=== PATIENT | female | born 1945 | race Caucasian/White ===

== ENCOUNTER 2021-01-20 15:03 | Outpatient (CLI) | payer MEDICARE, SELFPAY ==
--- NOTE | 2021-01-20 15:10 | MM_ITS ---
WS: [id number] BILATERAL DIGITAL SCREENING MAMMOGRAPHY WITH CAD CLINICAL INFORMATION: SCREENING HISTORY: Screening mammogram. No current complaints. COMPARISON: Multiple outside examinations including 8 , , . . Ultrasou nd TECHNIQUE: Bilateral CC and MLO views. FINDINGS: Bilateral breast implants with dense capsular calcifications. Scattered fibroglandular densities bilaterally. 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 This is increased in size since 2017. T joy this measures approximately 3.9 x 1.6 CM compared to 2.3 x 1.1 cm in 2019 and 1.2 x 7.8 cm on . This measured only 4 mm . Otherwise no suspicious focal mass, asymmetry, calcifications, or architectural distortion. No eviden ce of malignancy. MM/[place] [id number] IMPRESSION: BI-RADS: 2-Benign FOLLOW UP: See Report Significant increase in size of the silicone granuloma anterior lateral left br east. This is significantly increased since 2017 and recommend breast surgery c onsultation for further evaluation regarding breast implant revision or removal . Otherwise recommend Annual screening mammography.
== END 2021-01-20 15:04 | disposition home or self-care (01) ==
LOC: RADSHAW 15:09
PROVIDERS: Family Provider Family Medicine; Visit Provider Family Medicine
DX: Z12.31 Encounter for screening mammogram for malignant neoplasm of breast (principal)
CPT/HCPCS: 77067

== ENCOUNTER 2022-02-05 12:35 | Outpatient (CLI) | payer MEDICARE, SELFPAY ==
--- NOTE | 2022-02-05 12:42 | XR_ITS ---
WS: [id number] DEXA (DUAL ENERGY X-RAY ABSORPTIOMETRY) Bone mineral density was performed using a echoecho machine. HISTORY: POST MENOPAUSAL COMPARISON: 08/08/2017 Lumbar spine BMD (L1-L4): 1.339 g/cm2 T score: 1.3 Z score: 2.1 Total hip BMD: Left: 0.912 g/cm2. T score: -0.8 Z score: 0.3 Right: 0.911 g/cm2. T score: -0.8 Z score: 0.3 10 year probability of a major osteoporotic fracture is 28%. Compared to the prior study from 08/08/2017. Lumbar spine bone mineral density has increased by 2.1%. Bilateral hips bone mineral density has decreased by 5.8%. XR/XR DEXA axial skeleton* [id number] IMPRESSION: NORMAL BONE MINERAL DENSITY based upon the WHO classification for females. Significant decrease in bone mineral density within the hips and increased with in the lumbar spine since the prior study.
== END 2022-02-05 12:36 | disposition home or self-care (01) ==
PROVIDERS: PCP Family Medicine; Visit Provider Nurse Practitioner
DX: Z78.0 Asymptomatic menopausal state (principal)
CPT/HCPCS: 77080

== ENCOUNTER 2023-11-13 09:10 | Emergency (ER) | payer MEDICARE, SELFPAY ==
[2023-11-13 09:46] VITALS: BP 155/76; PULSE 75; RESP 18; TEMP 37.2; O2SAT 95; BMI 38.4
--- NOTE | 2023-11-13 11:35 | XR_ITS ---
WS: [id number] Left knee, 3 views, 11/13/2023 Clinical Data: knee pain, felt pop Comparison: Left knee, 03/04/2015 Findings: There is narrowing of the medial and lateral joint compartments with spurring of the medial and later al tibial plateau and femoral condyles. The posterior patella shows significant spurring. There are no fractures or dislocations. The soft ti ssues are normal. Impression: Severe osteoarthritis of the left knee Kellgren-Rohit Classification: grade 4 (severe): large osteophytes, marked narrowing of joint spac e, severe sclerosis and definite deformity of bone ends
--- NOTE | 2023-11-13 13:21 | W.ED.EXTPRO ---
HPI - Extremity Problem General: Chief complaint: Extremity Injury, Lower Stated complaint: left knee pain Time Seen by Provider: 11/13/23 13:20 History of Present Illness: 77-year-old female comes in today with crepitus to the left knee. Patient has difficulty with mobility due to severe arthritis to the left knee. Patient at this time uses Tylenol routinely for her pain. Patient denies any recent falls but states that when she had got up a couple of times she feels a pop in her knee. Minimal to no swelling is noted to the knee. Patient does have a appointment to see orthopedist on the . Patient just stresses that she is having more more difficulty with getting around. Review of Systems General: Reports: 10 or more systems reviewed and unremarkable except in HPI and below Musc: Reports: joint pain Physical Exam Const: COMMON NORMALS: alert HENMT: COMMON NORMALS: normocephalic HEAD & SCALP: normocephalic Neck/C-Spine: COMMON NORMALS: full ROM Resp: COMMON NORMALS: normal respiratory effort Cardio: COMMON NORMALS: regular rate RATE: regular rate Back/Pelvis: COMMON NORMALS: thoracic and lumbar spine normal to inspection Extremity: LEFT LOWER EXTREMITY: Yes knee joint (No redness, pain and crepitus with range of motion.) Neuro: SENSORIUM/ORIENTATION: Yes alert Skin: COMMON NORMALS: turgor normal GENERAL SKIN EXAM: turgor normal Course Vital Signs: Vital signs: Vital Signs Temperature 99 F 11/13/23 09:46 Pulse Rate 75 11/13/23 09:46 Respiratory Rate 18 11/13/23 09:46 Blood Pressure 155/76 11/13/23 09:46 Pulse Oximetry 95 11/13/23 09:46 Oxygen Delivery Me thod Room Air 11/13/23 09:46 MDM - Extremity (Nontraumatic) Medical Decision Making 77-year-old female comes in today with complaints of pain to the left knee. Patient reports no acute injury. Patient does have a history of osteoarthritis to the knee that has worsened over the years. Patient is scheduled to follow-up with a orthopedist on 22 November. Patient denies any recent falls. Patient reports feeling a popping sensation in the knee at times. Differential diagnosis includes but not limited to osteoarthritis of the knee, meniscal injury, ligament injury, fracture. X-ray notes a severely arthritic knee without any signs of acute injury. Reviewed exam with patient with recommendations for follow-up with orthopedic surgeon. Patient does have an appointment for the 12th but does not feel like she can wait that long. I offered him referral to case management to discuss may be moving up the orthopedic appointment if possible. Patient was agreeable. Patient was started on naproxen and was recommended to continue with Tylenol for pain. Patient reported understanding. All radiology interpretation(s) finalized by discharge Discharge Plan Discharge Patient Disposition: Home Clinical Impression: Tricompartment osteoarthritis of knee Qualifiers: Laterality: left Qualified Code(s): M17.12 - Unilateral primary osteoarthritis, left knee Condition: Stable Prescriptions: New naproxen 500 mg tablet,delayed release (DR/EC) 500 mg PO BID Qty: 20 0RF Discharge Orders: Discharge ED (Routine); Ordered 11/13/23 Ordered By: Ronen Banegas Referrals: Hubert Manjarrez MD [Primary Care Provider] - Discharge Diet: Usual diet Discharge Activity: Use walker/crutches as instructed Patient Instructions: Osteoarthritis (ED), Pain Management Activity Restrictions/Additional Instructions: Use ice and heat to help with pain. Continue with Tylenol to help control pain. Use naproxen 500 twice a day routinely for pain and inflammation. Try to maintain activity is much as possible. Follow-up with orthopedic surgeon for further evaluation and treatment. Return to ED for new concerns. Coding Level of Care Code ED Assisted Living Home Director for Bill Forte
--- NOTE | 2023-11-14 10:00 | DCPLANNER ---
Message sent to Ortho for a follow up would like sooner appointment. osteoarthritis knee.
== END 2023-11-13 13:59 | disposition home or self-care (01) ==
PROVIDERS: Emergency Provider Nurse Practitioner Family; PCP Family Medicine
DX: M17.12 Unilateral primary osteoarthritis, left knee (principal)
CPT/HCPCS: 73562; 99283

== ENCOUNTER → 2023-11-21 10:04 | Outpatient (BNVA) | payer MEDICARE, SELFPAY | PROVIDERS: PCP Family Medicine; Visit Provider Nurse Practitioner | DX: M17.12 Unilateral primary osteoarthritis, left knee; Z01.818 Encounter for other preprocedural examination; M25.562 Pain in left knee | CPT/HCPCS: 36415; 73560; 73565; 80053; 81003; 85025; 99204 ==

== ENCOUNTER 2023-12-03 09:25 | Outpatient (RCR) | payer MEDICARE, SELFPAY | END 2023-12-11 23:59 | disposition home or self-care (01) | LOC: SPT 09:25 | PROVIDERS: PCP Family Medicine; Visit Provider Nurse Practitioner | DX: M17.0 Bilateral primary osteoarthritis of knee (principal) | CPT/HCPCS: 97110; 97161 ==

== ENCOUNTER 2023-12-16 12:34 | Outpatient (RCR) | payer MEDICARE, SELFPAY | END 2024-01-09 23:59 | disposition home or self-care (01) | LOC: SPT 12:34 | PROVIDERS: PCP Family Medicine; Visit Provider Nurse Practitioner | DX: M17.0 Bilateral primary osteoarthritis of knee (principal) | CPT/HCPCS: 97110 ==

== ENCOUNTER 2023-12-17 08:37 | Outpatient (CLI) | payer MEDICARE, SELFPAY ==
--- NOTE | 2023-12-17 09:00 | CT_ITS ---
WS: [id number] CT LEFT knee, noncontrast HISTORY: pre-operative evaluation for TKA. TECHNIQUE: Protocol for [facility] total knee replacement has been obtained. This includes axial imaging th rough the LEFT hip, LEFT knee and LEFT ankle. DLP: 948.22 mGy COMPARISON: None available. Pelvis: Bilateral degenerative joint disease at the hips, RIGHT greater than LEFT. No destructive bon e lesions. No fracture. LEFT knee: Moderate tricompartment arthritis. Marginal osteophytes. No fracture. Small suprapatellar joint effusion. LEFT ankle: No fracture. IMPRESSION: CT imaging provided for [facility] robotic total knee replacement.
== END 2023-12-17 08:38 | disposition home or self-care (01) ==
PROVIDERS: PCP Family Medicine; Visit Provider Nurse Practitioner
DX: M25.762 Osteophyte, left knee (principal); M13.862 Other specified arthritis, left knee; M25.462 Effusion, left knee; I48.91 Unspecified atrial fibrillation; M17.0 Bilateral primary osteoarthritis of knee
CPT/HCPCS: 73700

== ENCOUNTER → 2023-12-23 13:03 | Outpatient (BNVA) | payer MEDICARE, SELFPAY | PROVIDERS: PCP Family Medicine; Visit Provider Family Medicine | DX: Z01.818 Encounter for other preprocedural examination (principal) | CPT/HCPCS: 81000 ==

== ENCOUNTER 2023-12-30 10:36 | Outpatient (CLI) | payer MEDICARE, SELFPAY ==
--- NOTE | 2023-12-30 10:45 | USCV_ITS ---
Loreta Martinez Age: 78 Gender: F : 1945 Exam Date: 12/30/2023 11:03 Ordering Phys: Hubert Manjarrez MD Technologist: Melanie Cheung Exam Location: [facility] [place] Indication: a fib unspecified, pre op knee arthroscopy BP: 124 / 78 HR: 0 Rhythm: Sinus Technical Quality: Adequate MEASUREMENTS (Male / Female) Normal Values 2D ECHO LV Diastolic Diameter PLAX 5.0 cm 4.2 - 5.9 / 3.9 - 5.3 cm IVS Diastolic Thickness 0.7 cm 0.6 - 1.0 / 0.6 - 0.9 cm IVS Systolic Thickness 1.2 cm LVPW Diastolic Thickness 0.5 cm 0.6 - 1.0 / 0.6 - 0.9 cm LVPW Systolic Thickness 1.8 cm LVOT Diameter 2.0 cm LV Ejection Fraction 2D Teich 87.1 % LV Ejection Fraction MOD 2C 57.6 % Aorta at Sinotubular Diameter 2.4 cm IVC Diameter 1.3 cm M-MODE LA Ao Ratio MM 0.8 AV Cusp Separation MM 1.9 cm DOPPLER AV Peak Velocity 149.0 cm/s LVOT Peak Velocity 109.0 cm/s AV Area Cont Eq vti 2.7 cm squared AV Area Cont Eq pk 2.4 cm squared MV Area PHT 2.4 cm squared Mitral E to A Ratio 0.9 TV Peak Velocity 168.3 cm/s TR Peak Velocity 264.0 cm/s TR Peak Gradient 27.9 mmHg Right Atrial Pressure 3.0 mmHg Pulmonary Artery Systolic Pressu 30.9 mmHg PV Peak Velocity 56.3 cm/s FINDINGS Left Ventricle Left ventricle is normal in size. LV systolic function is normal with EF of 50-55%. No regional wall motion abnormalities are seen. Grade 1 diastolic dysfunction. Right Ventricle Normal in size and function Right Atrium Normal in size. Echogenic structure seen in right atrium. Likely thrombus. Other differentials will include myxoma vs artifact. Left Atrium Normal in size Mitral Valve Structurally normal mitral valve. Trace mitral regurgitation. Aortic Valve Structurally normal aortic valve. No significant stenosis. Tricuspid Valve Mild tricuspid regurgitation. Pulmonary artery systolic pressure is normal. Pulmonic Valve Not well visualized Pericardium Normal Aorta Normal in size IVC Appears to be normal CONCLUSIONS LV systolic function is normal with EF of 50-55%. Grade 1 diastolic dysfunction Echogenic structure seen in right atrium. Likely thrombus. Other differentials would include myxoma versus artifact. Will recommend cardiac CT to better assess the structure. Trace mitral regurgitation Mild tricuspid regurgitation No comparison studies are available. Misha Mcfadden MD (Electronically Signed) Final Date: 04 January 2024 12:25 S
== END 2023-12-30 10:37 | disposition home or self-care (01) ==
LOC: RAD 10:36
PROVIDERS: PCP Family Medicine; Visit Provider Family Medicine
DX: Z01.810 Encounter for preprocedural cardiovascular examination (principal); I48.91 Unspecified atrial fibrillation; R93.1 Abnormal findings on diagnostic imaging of heart and coronary circulation; I07.1 Rheumatic tricuspid insufficiency
CPT/HCPCS: 93306

== ENCOUNTER → 2024-01-30 09:59 | Outpatient (BNVA) | payer MEDICARE, SELFPAY | PROVIDERS: PCP Family Medicine; Referring Provider Family Medicine; Visit Provider Internal Medicine | DX: R93.1 Abnormal findings on diagnostic imaging of heart and coronary circulation (principal); I49.1 Atrial premature depolarization; I49.3 Ventricular premature depolarization; I47.20 Ventricular tachycardia, unspecified; I47.10 Supraventricular tachycardia, unspecified | CPT/HCPCS: 93242 ==

== ENCOUNTER → 2024-03-24 14:23 | Outpatient (BNVA) | payer MEDICARE, SELFPAY | PROVIDERS: PCP Family Medicine; Referring Provider Family Medicine; Visit Provider Internal Medicine | DX: R07.9 Chest pain, unspecified (principal); I48.91 Unspecified atrial fibrillation; I51.89 Other ill-defined heart diseases; R94.31 Abnormal electrocardiogram [ECG] [EKG]; I44.4 Left anterior fascicular block | CPT/HCPCS: 93005; 99204 ==

== ENCOUNTER → 2024-07-28 12:25 | Outpatient (BNVA) | payer MEDICARE, SELFPAY | PROVIDERS: PCP Family Medicine; Visit Provider Internal Medicine | DX: I48.91 Unspecified atrial fibrillation (principal); I51.89 Other ill-defined heart diseases; I87.2 Venous insufficiency (chronic) (peripheral); Z87.891 Personal history of nicotine dependence | CPT/HCPCS: 99214 ==

== ENCOUNTER → 2025-02-17 14:06 | Outpatient (BNVA) | payer MEDICARE, SELFPAY | PROVIDERS: PCP Family Medicine; Visit Provider Internal Medicine | DX: I48.91 Unspecified atrial fibrillation (principal); Z79.01 Long term (current) use of anticoagulants; Z87.891 Personal history of nicotine dependence | CPT/HCPCS: 99214 ==

== ENCOUNTER 2025-03-23 06:36 | Outpatient (CLI) | payer MEDICARE, SELFPAY ==
--- NOTE | 2025-03-23 | ECG_ITS ---
[facility] Test Date: 2025-03-23 Pat Name: Loreta Martinez Department: Room: Gender: Female Network Admin: : 1945 Requested By: Misha Mcfadden Order Number: [id number] Reading MD: ETELVINA ALCANTARA Interpretive Statements Lung unchanged pre/post procedure; Intraprocedure shortess of breath; Symptoms resoled by discharge NOTE: Please note that this is the electrocardiogram portion of the Lexiscan/Sestamibi stress test. The perfusion scan will be documented separately. DATA: Baseline heart rate was 70 beats per minute. Baseline blood pressure was 126/66 millimeters of mercury. Target heart rate was 142. Maximum heart rate achieved was 106. which was 74% of the predicted target heart rate. Maximum blood pressure was 141/71 millimeters of mercury. The reason for ending the test was completion of the protocol. The patient did not experience any symptoms. ELECTROCARDIOGRAM: BASELINE: Sinus rhythm. Left axis. Poor R wave progression, interventricular conduction delay, lead placement of cannot rule out anterior wall myocardial infarction, otherwise no ST-T changes suggestive of ischemia noted. No arrhythmia noted. EXERCISE: After Lexiscan injection, no ST-T changes suggestive of ischemic noted. PVCs noted CONCLUSION: Please note due to baseline abnormality of the EKG specificity and sensitivity of the EKG portion of LexiScan MIBI stress test will be low 1. EKG not suggestive of ischemia 2. Lexiscan injection unremarkable. 3. Perfusion scan will be documented separately. Electronically Signed On 04-13-2025 22:12:55 CDT by ETELVINA ALCANTARA [email or web address]
[2025-03-23 06:52] VITALS: BMI 37.8
--- NOTE | 2025-03-23 06:56 | NMCV_ITS ---
NM desiree perf SPECT r/s* [id number] Loreta Martinez Age: 79 Gender: F : 1945 Exam Date: 03/23/2025 07:51 Ordering Phys: Adilson Maddox MD Technologist: SANA Valencia Exam Location: [facility] Indications: cp STRESS TEST Please see separate stress test report in [facility] for full findings IMAGE PROTOCOL Rest/Stress 1 Lexiscan Day Radiopharmaceutical Dose (mCi) Administration Site Administered by Rest: Tc-99m 10.9 IV Leydi Iqbal, LEADED GLASS INSTALLER Sestamibi Stress:Tc-99m 32.9 IV Leydi Buttsgle, LEADED GLASS INSTALLER Sestamibi Rest: 23-Mar-2025 60 Discovery 630 Stress: 23-Mar-2025 30 Discovery 630 0.4mg Lexiscan. Supine position only as patient was unable to lay prone. SPECT RESULTS Technical Quality: Good Raw Data Analysis: Normal Image Corrections: No attenuation or motion correction applied Summed Stress Score: 0 Summed Rest Score: 3 Summed Difference Score: 0 PERFUSION FINDINGS SPECT images demonstrate homogeneous tracer distribution throughout the myocardium. FUNCTIONAL RESULTS (calculated via Gated SPECT) Stress Image LV EF (%): 77 Stress EDV (mL):101 TID: 0.87 Stress ESV (mL):23 FUNCTIONAL FINDINGS: There is normal left ventricular systolic function. IMPRESSIONS Myocardial perfusion imaging is normal. Bharat Fraser MD (Electronically Signed) Final Date: 25 Mar 2025 21:36 S
[2025-03-23] MEDS: regadenoson 0.4 Mg/5 ml Syringe IVP (08:38)
[2025-03-23 08:50] VITALS: BP 127/71; PULSE 87
== END 2025-03-23 06:37 | disposition home or self-care (01) ==
LOC: CDL 06:40
PROVIDERS: PCP Family Medicine; Visit Provider Internal Medicine
DX: R07.9 Chest pain, unspecified (principal)
CPT/HCPCS: 36415; 78452; 93017; 96374; A9500; J2785

== ENCOUNTER 2025-05-04 09:59 | Emergency (ER) | payer MEDICARE, SELFPAY ==
[2025-05-04 10:01] VITALS: BP 133/68; PULSE 83; RESP 17; TEMP 36.7; O2SAT 98; BMI 38.2
[2025-05-04 10:12] VITALS: BP 133/68; PULSE 83; RESP 17; TEMP 36.7; O2SAT 98
--- NOTE | 2025-05-04 10:28 | XR_ITS ---
WS: [id number] Exam: XR hip RT 2-3V wo/w pel* [id number] Date/Time of Exam: 05/04/2025 10:31 AM Reason For Exam: Postop pain RIGHT total hip prosthesis is in satisfactory position. Postoperative changes in the soft tissues. XR/XR hip RT 2-3V wo/w pel* [id number] IMPRESSION: 1. RIGHT total hip replacement in satisfactory position.
--- NOTE | 2025-05-04 10:28 | USCV_ITS ---
MartinezKarsonLoreta Age: 79 Gender: F : 1945 Exam Date: 05/04/2025 10:57 Ordering Phys: Mulugeta Rodriguez DO Technologist: [place]am [place] [facility] [place]ication: Rt leg pain and edema post rt h ip surg PROCEDURES: Venous duplex imaging was performed in only the right lower extremity. The following venous structures were evaluated: common femoral vein, profunda vein, proximal portion of the greater saphenous vein, superficial femoral vein, and the popliteal vein. In addition, the posterior tibial and peroneal trunk were evaluated. FINDINGS: Normal 2-D Doppler and augmentation and compressibility throughout the lower extremity venous structures. Additional imaging through the proximal calf veins also reveals no thrombus. Limited evaluation of the greater saphenous vein is patent with no thrombus. CONCLUSIONS No DVT right lower extremity. Dr. Ciera Frank DO (Electronically Signed) Final Date: 04 May 2025 11:51 S
--- NOTE | 2025-05-04 11:02 | W.ED.EXTPRO ---
HPI - Extremity Problem General: Chief complaint: Extremity Problem,Nontraumatic Stated complaint: Post op Hip Pain Time Seen by Provider: 05/04/25 10:04 History of Present Illness: 79-year-old female presents emergency room complaining of unable to manage at home. Last week she had a right hip arthroplasty done she has a wound VAC on the hip she is not been taking her oxycodone and said taking tramadol because that the oxycodone makes her too weak and dizzy she has not been able to get up around use her walker. No chest pain no increased shortness of breath she does have some swelling of her right lower leg. She is on apixaban 5 mg twice daily. She has a history of COPD and is using nebulizer is not chronically on oxygen. Associated symptoms: Deny chest pain, fever(s) or rash Related Data Home Medications ?Medication ?Instructions ?Recorded ?Confirmed metformin 500 mg tablet 1,000 mg PO DAILY 11/21/23 05/04/25 sodium bicarbonate-sodium 1 ea .Route DAILY 11/21/23 05/04/25 chloride-neti pot nasal rinse with packet (Cordova Saline Nasal Neti Rinse with packet) fexofenadine 180 mg tablet 180 mg PO DAILY 12/23/23 05/04/25 (Airam Allergy) apixaban 5 mg tablet (Eliquis) 5 mg PO BID 03/24/24 05/04/25 diltiazem HCl 120 mg 120 mg PO DAILY 03/24/24 05/04/25 capsule,extended release 24 hr atorvastatin 10 mg tablet (Lipitor) 10 mg PO DAILY 02/17/25 05/04/25 budesonide 160 mcg-glycopyr 9 2 inh inhalation BID 02/17/25 05/04/25 mcg-formot 4.8 mcg/actuation HFA inhaler (Breztri Aerosphere) acetaminophen 325 mg tablet 325 mg PO Q6H PRN Pain 05/04/25 05/04/25 apixaban 2.5 mg tablet (Eliquis) 2.5 mg PO BID 05/04/25 05/04/25 azelastine 137 mcg (0.1 %) nasal 2 spray intranasal BID 05/04/25 05/04/25 spray bisacodyl 5 mg tablet,delayed 5 mg PO DAILY 06/24/25 06/24/25 release celecoxib 200 mg capsule 200 mg PO DAILY 05/04/25 05/04/25 famotidine 20 mg tablet 20 mg PO BID 05/04/25 05/04/25 ondansetron 4 mg disintegrating 4 mg PO PRN PRN Nausea And Vomiting 05/04/25 05/04/25 tablet oxycodone 5 mg tablet 5 mg PO Q6H PRN Pain 05/04/25 05/04/25 tramadol 50 mg tablet 50 mg PO Q4H PRN Pain 05/04/25 05/04/25 Allergies Allergy/AdvReac Type Severity Reaction Status Date / Time adhesive tape Allergy ALGY-Bliste Verified 03/23/25 11:01 r Sulfa (Sulfonamide Allergy ALGY-Hives Verified 03/23/25 11:01 Antibiotics) Review of Systems Const: Denies: fever(s) or chills Card: Denies: chest pain Resp: Denies: dyspnea GI: Denies: abdominal pain : Denies: dysuria, urinary frequency or urinary urgency Musc: Denies: neck pain or back pain Skin/Breast: Denies: rash PFSH ED PFSH: Medical History Primary osteoarthritis of left knee Social History Smoking and tobacco/nicotine status: former use of tobacco/nicotine (quit 20+ years) Physical Exam Const: COMMON NORMALS: no acute distress GENERAL APPEARANCE: cooperative and comfortable ORIENTATION/CONSCIOUSNESS: Yes awake, Yes oriented to person, Yes oriented to place and Yes oriented to time HENMT: COMMON NORMALS: normocephalic, atraumatic and hearing grossly normal bilaterally HEAD & SCALP: normocephalic and atraumatic Resp: COMMON NORMALS: normal respiratory effort, No retractions, No use of accessory muscles and clear to auscultation bilaterally AUSCULTATION: clear to auscultation bilaterally Cardio: COMMON NORMALS: regular rate, regular rhythm and No murmurs present (Cardio) RATE: regular rate RHYTHM: regular rhythm GI: COMMON NORMALS: Soft to palpation and No hepatosplenomegaly present AUSCULTATION: Yes normoactive bowel sounds PALPATION: Yes Soft to palpation, No Tenderness to palpation present (GI), No Guarding due to palpation present (GI) and Yes No hepatosplenomegaly present Extremity: COMMON NORMALS: normal to inspection, capillary refill normal, no clubbing, cyanosis or edema, no calf tenderness and no pedal edema Neuro: SENSORIUM/ORIENTATION: Yes oriented to person, Yes oriented to place and Yes oriented to time Skin: COMMON NORMALS: no rashes or lesions noted GENERAL SKIN EXAM: no rashes or lesions noted Course Vital Signs: Vital signs: Vital Signs Temperature 98.0 F 05/04/25 10:12 Pulse Rate 88 05/04/25 14:35 Respiratory Rate 18 05/04/25 12:11 Blood Pressure 157/57 05/04/25 14:35 Pulse Oximetry 95 05/04/25 14:35 Oxygen Delivery Me thod Room Air 05/04/25 10:01 MDM - Extremity (Nontraumatic) Medical Decision Making Mild anemia, consistent with recent surgery. Potassium is slightly elevated. Some of this may be from drawing blood no acute renal function kidney function is good today does not need to be treated at this time. We did try to get urine to sample. We recommended mini cath patient refused. Case management helped us to evaluate the patient she had the surgery done at [facility] they are unable to get her to qualify for skilled care based off on that they were able to get her placed at [facility] today in [place] [facility] will continue to work on getting her into skilled level of care get the prior Auth completed. Patient transported by [facility]. No acute findings on evaluation today. Lab Data 05/04/25 11:44 05/04/25 11:44 Radiology Impressions Hip/Pelvis X-Ray 05/04/25 10:28 IMPRESSION: 1. RIGHT total hip replacement in satisfactory position. Laboratory Results WBC 9.19 10^3/uL (3.29-11.43) 05/04/25 11:44 RBC 3.15 10^6/uL (3.85-5.65) L 05/04/25 11:44 Hgb 10.20 g/dL (11.27-16.99) L 05/04/25 11:44 Hct 31.2 % (36-47) L 05/04/25 11:44 MCV 99.0 fl (85-98) H 05/04/25 11:44 MCH 32.4 pg (27-33) 05/04/25 11:44 MCHC 32.7 g/dL (30-55) 05/04/25 11:44 RDW 13.3 % (12.1-15.1) 05/04/25 11:44 Plt Count 346 10^3/cmm (157-399) 05/04/25 11:44 MPV 9.8 fL (7.4-10.4) 05/04/25 11:44 Neut % (Auto) 70.1 % 05/04/25 11:44 Lymph % (Auto) 16.1 % 05/04/25 11:44 Kings % (Auto) 11.0 % 05/04/25 11:44 Eos % (Auto) 1.5 % 05/04/25 11:44 Baso % (Auto) 0.2 % 05/04/25 11:44 Neut # (Auto) 6.44 10^3/uL (1.8-7.7) 05/04/25 11:44 Lymph # (Auto) 1.5 10^3/uL (0.8-4.8) 05/04/25 11:44 Kings # (Auto) 1.0 10^3/uL (0.2-0.9) H 05/04/25 11:44 Eos # (Auto) 0.1 10^3/uL (0.0-0.8) 05/04/25 11:44 Baso # (Auto) 0.0 10^3/uL (0.0-0.1) 05/04/25 11:44 Nucleated RBC % (auto) 0 % 05/04/25 11:44 Nucleated RBCs # 0.0 /100WBC 05/04/25 11:44 Sodium 135 mmol/L (136-145) L 05/04/25 11:44 Potassium 5.2 mmol/L (3.5-5.1) H 05/04/25 11:44 Chloride 101 mmol/L (98-107) 05/04/25 11:44 Carbon Dioxide 23 mmol/L (22-29) 05/04/25 11:44 Anion Gap 16.2 (5-19) 05/04/25 11:44 BUN 22 mg/dL (8-23) 05/04/25 11:44 Creatinine 0.9 mg/dL (0.5-0.9) 05/04/25 11:44 GFR Calculation Not Reportable 05/04/25 11:44 Glucose 113 mg/dL (65-115) 05/04/25 11:44 Calculated Osmolality 284 mOsm/kg (285-295) L 05/04/25 11:44 Calcium 8.9 mg/dL (8.5-10.5) 05/04/25 11:44 Total Bilirubin 1.0 mg/dL (0.15-1.2) 05/04/25 11:44 AST 30 U/L (0-32) 05/04/25 11:44 ALT 28 U/L (0-33) 05/04/25 11:44 Alkaline Phosphatase 98 U/L (35-105) 05/04/25 11:44 Total Protein 6.0 g/dL (6.6-8.7) L 05/04/25 11:44 Albumin 3.2 g/dL (3.5-5.2) L 05/04/25 11:44 Globulin 2.8 g/dL (1.3-4.6) 05/04/25 11:44 All radiology interpretation(s) finalized by discharge Discharge Plan Discharge Patient Disposition: Home Clinical Impression: S/P total right hip arthroplasty, Leg pain, right Condition: Stable Prescriptions: No Action metformin 500 mg tablet 1,000 mg PO DAILY Cordova Saline Nasal Neti Rinse Packet With Rinse Device 1 ea .Route DAILY Rx Instructions: PRN diltiazem HCl 120 mg capsule,extended release 24hr 120 mg PO DAILY Eliquis 5 mg tablet 5 mg PO BID atorvastatin [Lipitor] 10 mg tablet 10 mg PO DAILY Breztri Aerosphere 160-9-4.8 mcg/actuation HFA aerosol inhaler 2 inh inhalation BID fexofenadine [Airam Allergy] 180 mg Tablet 180 mg PO DAILY celecoxib 200 mg capsule 200 mg PO DAILY acetaminophen 325 mg tablet 325 mg PO Q6H PRN (Reason: Pain) tramadol 50 mg tablet 50 mg PO Q4H PRN (Reason: Pain) famotidine 20 mg tablet 20 mg PO BID bisacodyl 5 mg tablet,delayed release (DR/EC) 5 mg PO DAILY azelastine 137 mcg (0.1 %) spray,non-aerosol 2 spray INTRANASAL BID ondansetron 4 mg tablet,disintegrating 4 mg PO PRN PRN (Reason: Nausea And Vomiting) oxycodone 5 mg tablet 5 mg PO Q6H PRN (Reason: Pain) Eliquis 2.5 mg tablet 2.5 mg PO BID Discharge Orders: Discharge ED (Routine); Ordered 05/04/25 Ordered By: Mulugeta Rodriguez Referrals: Hubert Manjarrez MD [Primary Care Provider, [facility]] Discharge Diet: Usual diet Discharge Activity: Resume usual activity Patient Instructions: Opioid Safety, Pain Management, Patient Portal & Mateo Instructions Activity Restrictions/Additional Instructions: Thank you for choosing [facility] for your healthcare needs today. It is very important that you follow up as instructed or that you return to the Emergency Department should you have concerns or if your condition changes or worsens in any way. You will be discharged from the emergency room to [facility]. Print Language: Belarusian Coding Level of Care Code ED [employer] Plant Operator for Bill Forte
[2025-05-04 11:50] LABS: Basophils % 0.2 %; Eosinophils # 0.1 10^3/uL (0.0-0.8); Eosinophils % 1.5 %; Hematocrit 31.2 % (36-47); Lymphocytes # 1.5 10^3/uL (0.8-4.8); Lymphocytes % 16.1 %; Mean Corpuscular HGB Conc 32.7 g/dL (30-55); Mean Corpuscular Hemoglobin 32.4 pg (27-33); Mean Platelet Volume 9.8 fL (7.4-10.4); Neutrophils # 6.44 10^3/uL (1.8-7.7); Neutrophils % 70.1 %; Nucleated Red Blood Cells % 0 %; Platelet Count 346 10^3/cmm (157-399); Red Blood Count 3.15 10^6/uL (3.85-5.65); Red Cell Distribution Width 13.3 % (12.1-15.1); White Blood Count 9.19 10^3/uL (3.29-11.43)
[2025-05-04 12:11] VITALS: RESP 18; O2SAT 95
[2025-05-04] MEDS: morphine 4 mg/mL SDV 1 mL IVP (12:11)
[2025-05-04 12:13] LABS: Alanine Aminotransferase 28 U/L (0-33); Albumin Level 3.2 g/dL (3.5-5.2); Alkaline Phosphatase 98 U/L (35-105); Anion Gap 16.2 (5-19); Aspartate Amino Transferase 30 U/L (0-32); Blood Urea Nitrogen 22 mg/dL (8-23); Calcium 8.9 mg/dL (8.5-10.5); Carbon Dioxide 23 mmol/L (22-29); Chloride 101 mmol/L (98-107); Globulin 2.8 g/dL (1.3-4.6); Glucose 113 mg/dL (65-115); Osmolality Calculated 284 mOsm/kg (285-295); Potassium 5.2 mmol/L (3.5-5.1); Sodium 135 mmol/L (136-145)
--- NOTE | 2025-05-04 12:25 | PC.SOCIAL ---
Patient states she had surgery a week ago, and went home, thinking she could take care of herself. But unable to. CM discussed that if we tried to get her to a SNF it would require auth and she wouldnt be able to stay here while auth was going on. Discussed her going to [facility] but that she would have to pay out of pocket for her days there until she gets auth from insurance. Patient is agreeable. CM reached out to Nicole at [facility] to try and get information so a referral can be sent. Nicole states they should be able to take her there, but would also need auth there. Requested PT and OT evals to be done. PT and OT evals ordered at this time.
--- NOTE | 2025-05-04 14:25 | PC.SOCIAL ---
Nicole states based on their information she couldnt come there cause she walked 100ft there. CM reached out to Kaylin at [facility] and she states they can accept and bring in self pay until auth is approved. Patient is agreeable, CM informed patient if she goes self pay and [facility] dont get auth approval she would have to pay out of pocket the whole time she was there. She voiced understanding. DEMETRIO spoke to daughter who is going to see if she can get patient over to [facility] in the car. 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 She states they are on their way to get her. [id number] done, PT and OT notes done, all were faxed to Kaylin at this time.
[2025-05-04 14:35] VITALS: BP 157/57; PULSE 88; O2SAT 95
== END 2025-05-04 14:37 | disposition home or self-care (01) ==
PROVIDERS: Emergency Provider Family Medicine; PCP Family Medicine
DX: M79.605 Pain in left leg (principal); Z96.641 Presence of right artificial hip joint; G89.18 Other acute postprocedural pain; Z79.84 Long term (current) use of oral hypoglycemic drugs; Z79.01 Long term (current) use of anticoagulants; Z87.891 Personal history of nicotine dependence
CPT/HCPCS: 36415; 73502; 80053; 85025; 93971; 96374; 97161; 97167; 97530; 99284; J2270